=== PATIENT | female | born 1970 | race Caucasian/White ===

== ENCOUNTER 2024-08-12 21:05 | Emergency (ER) | payer MEDICAID, SELFPAY ==
[2024-08-12 21:16] VITALS: BP 166/94; PULSE 74; RESP 16; TEMP 36.6; O2SAT 97; BMI 34.3
--- NOTE | 2024-08-12 21:32 | CRLHL7_ITS ---
For Patients: As a result of the Century Cures Act, medical imaging exams and procedure reports are released immediately into your electronic medical record. You may view this report before your referring provider. If you have questions, please contact your health care provider. INDICATION: Pain. TECHNIQUE: Left knee 3 view. COMPARISON: None. FINDINGS: Bones: No acute fracture or suspicious bone lesion. Alignment is normal. Joints: There is moderate narrowing of the patellofemoral compartment with patellar spurring. Small joint effusion. Soft tissues: Probable superficial varicosities in the distal thigh and upper calf. IMPRESSION: 1. Small knee joint effusion. No other acute findings. 2. Degenerative changes of the patellofemoral compartment. Dictated by Kathe Joaquin MD @ 08/12/2024 10:26:56 PM (Electronically Signed)
--- NOTE | 2024-08-12 21:34 | ED.LOWEXIN ---
HPI - Extremity Injury (Lower) General Chief Complaint: Extremity Pain/Injury, Lower Stated Complaint: L knee pain Time Seen by Provider: 08/12/24 21:22 History of Present Illness HPI Narrative: This 53-year-old female comes in reporting pain in her left knee. She states that she had some discomfort over the past week or so that she thought would likely resolve but today she stepped backwards and had onset of pain in the posterior aspect of her left knee. She is able to ambulate. Related Data Home Medications ?Medication ?Instructions ?Recorded ?Confirmed No Known Home Medications 08/12/24 08/12/24 Allergies Allergy/AdvReac Type Severity Reaction Status Date / Time Penicillins Allergy Rash Verified 08/12/24 21:20 Review of Systems Status of ROS: Reports: 10 or more systems reviewed and unremarkable except as noted in History and below Narrative: Constitutional: No fevers, no weight gain or loss. Eyes: No discharge. No vision changes. HENT: No congestion, no sore throat, no ear pain. Cardiovascular: No chest pain, no palpitations. Respiratory: No shortness of breath, no wheezes, no cough. Gastrointestinal: No abdominal pain, no vomiting, no diarrhea. Genitourinary: No dysuria, no hematuria. Musculoskeletal: Normal range of motion. Skin: No rashes, no pruritis. Neurological: No dizziness, weakness, sensory change, speech change. Endo/Heme/Allergies: No bruising or bleeding. No polydipsia. Pysch: no suicidality, no anxiety, no insomnia. All other systems reviewed and are negative. PFSH PFSH Social History Non-prescribed substance use: denies use Exam Narrative: Exam Narrative: Constitutional: Well-developed, well-nourished, no acute distress. HEENT: Normocephalic, atraumatic. Neck: Normal range of motion. Nontender. Supple. Heart: Intact distal pulses. Lungs: No chest discomfort. No wheezes, rhonchi, or rales. Abdomen: Nontender. Back: Normal range of motion. Extremities: Normal range of motion. Diffuse pain in the posterior aspect of the left knee. No sign of joint effusion or ligament instability. Skin: Intact. No rash. Warm. No erythema or pallor. Neurologic: No altered sensation. No weakness. Alert and oriented. Psychiatric: No suicidality. No anxiety or depression. No insomnia. Nursing notes and vitals signs are reviewed. Const: Vital Signs, click to edit/add: Vital Signs - 24 hr 08/12/24 21:16 Temperature 97.8 F Pulse Rate [Pulse Oximeter] 74 Respiratory Rate 16 Blood Pressure [Ri ght Upper Arm] 166/94 H Pulse Oximetry 97 Oxygen Delivery Me thod Room Air Course Vital Signs Vital signs: Initial Vital Signs Temperature 97.8 F 08/12/24 21:16 Temperature Source Temporal Artery Scan 08/12/24 21:16 Pulse Rate 74 08/12/24 21:16 Respiratory Rate 16 08/12/24 21:16 Blood Pressure 166/94 H 08/12/24 21:16 Blood Pressure Mean 118 H 08/12/24 21:16 Blood Pressure Position Sitting 08/12/24 21:16 Pulse Oximetry 97 08/12/24 21:16 Oxygen Delivery Method Room Air 08/12/24 21:16 Vital Signs Temperature 97.8 F 08/12/24 21:16 Pulse Rate 74 08/12/24 21:16 Respiratory Rate 16 08/12/24 21:16 Blood Pressure 166/94 H 08/12/24 21:16 Pulse Oximetry 97 08/12/24 21:16 Oxygen Delivery Method Room Air 08/12/24 21:16 Temperature 97.8 F 08/12/24 21:16 Pulse Rate 74 08/12/24 21:16 Respiratory Rate 16 08/12/24 21:16 Blood Pressure 166/94 H 08/12/24 21:16 Pulse Oximetry 97 08/12/24 21:16 Oxygen Delivery Method Room Air 08/12/24 21:16 MDM - Extremity Injury (Lower) MDM Narrative Medical decision making narrative: This patient comes in with pain in her left knee as described above. She does not really have any significant mechanism of injury to generate her symptoms. X-ray shows no sign of fracture or malalignment but there is some degenerative changes and a small amount of an effusion. This patient is able to ambulate and states that she will use Tylenol and ibuprofen as needed and directed. I advised her to follow-up with orthopedic clinic for further evaluation and treatment. Imaging Data XR L Knee: Radiologist's impression: 1. Small knee joint effusion. No other acute findings. 2. Degenerative changes of the patellofemoral compartment. Discharge Plan Discharge Clinical Impression: Acute knee pain Patient Disposition: Home, Self-Care Condition: Stable Additional Instructions: Activity as tolerated. Use over the counter medicines as needed and directed. Follow-up with orthopedic clinic for further evaluation and treatment. Call [phone] for appointment. Prescriptions: No Action No Known Home Medications Follow Up/Referrals: Provider,Not a Local [Primary Care Provider] - Stand Alone Forms: [employer] Info Instructions
== END 2024-08-12 22:43 | disposition home or self-care (01) ==
PROVIDERS: Emergency Provider Emergency Medicine Emergency Medical Services
DX: M25.562 Pain in left knee (principal)
CPT/HCPCS: 73562; 99283; 99284

== ENCOUNTER 2024-08-21 12:58 | Outpatient (CLI) | payer MEDICAID, OTHER, SELFPAY ==
--- NOTE | 2024-08-21 13:00 | MR_ITS ---
[address] [address] Phone:?[phone] Fax:?[phone] Referring Physician Information: Amish Fletcher [address] [facility] [address] Phone:?[phone] Fax:?[phone] Patient:Matt Obrien D.O.B:?1970 Sex:?Female Phone:?[phone] [facility] MRN:?[id number] Exam Date:?08/21/2024 EXAM: MRI of the LEFT KNEE, without contrast CLINICAL INFORMATION: Female, 53 years old, with pain INDICATION: Evaluate for meniscus tear PRIOR SURGERY: None reported. PLAIN FILMS: Radiographs 08/12/2024. COMPARISONS: No prior MRIs available. TECHNICAL INFORMATION: Using a 1.5T MR scanner and a localizing surface coil: sagittals: PD, PDFS coronals: PD, T2FS axials: PD, PDFS SEDATION: None CONTRAST: None FINDINGS: Knee joint: Effusion: Large size left knee effusion. Popliteal cyst: Small popliteal cyst. Mild fluid along the medial of the gastrocnemius suggesting rupture and leaking Loose bodies: None. Subcutaneous and extra-articular soft tissues: Unremarkable. Ligaments: ACL: Intact ACL anteromedial and posterolateral bundles, without sprain or tear. PCL: Intact PCL, without acute or chronic injury. MCL: Intact MCL superficial and deep layers, without injury. LCL: Intact LCL, without injury. Posterolateral corner: No posterolateral corner soft tissue injury. Popliteus, biceps femoris, iliotibial band, popliteofibular ligament and lateral gastrocnemius are intact. Posteromedial corner: No posteromedial corner soft tissue injury. Semimembranosus, pes anserine tendons and posterior oblique ligament are without injury, tendinopathy or bursitis. Extensor mechanism: Patellar tendon: Intact, without tendinopathy. Quadriceps tendon: Intact, without tendinopathy. Retinacula: Medial and lateral retinacula are intact. Fat pads: Unremarkable infrapatellar Hoffa's, quadriceps and prefemoral fat pads. Medial compartment: Medial meniscus: There is full-thickness radial tearing of the posterior horn/root of the medial meniscus measuring 0.8 cm in length. The posterior root is intact. Tearing results in 4 mm peripheral meniscal extrusion. Medial femoral condyle: Region of full-thickness chondral defect along the weightbearing surface of the medial femoral condyle measuring 0.9 x 1.1 cm. No underlying marrow reactive edema. Medial tibial plateau: Diffuse grade 2 chondral thinning of the medial tibial plateau articular cartilage. Lateral compartment: Lateral meniscus: Horizontal superior articular surface tearing along the anterior horn of the lateral meniscus. Lateral femoral condyle and tibial plateau: Mild chondral heterogeneity along the far posterior nonweightbearing lateral femoral condyle and tibial plateau. Patellofemoral joint: Patella: Broad-based full-thickness chondral loss of the medial patellar facet, extending to involve the superior aspect of the lateral patellar facet, where there is moderate underlying cystic change and osteophytosis. 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 Proximal tibiofibular joint: Proximal tibiofibular joint DJD. Bones: No stress/occult fractures or other marrow edema/pathology. IMPRESSION: 1. Full-thickness radial tearing of the posterior horn/root of the medial meniscus measuring 0.8 cm in length. 4 mm peripheral meniscal extrusion. 2. Region of full-thickness chondral defect along the central weightbearing medial femoral condyle measuring 0.9 x 1.1 cm. 3. Broad-based full-thickness chondral loss of the medial patellar facet and superior lateral patellar facet. 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 4. Mild lateral compartment chondromalacia. 5. Horizontal superior articular surface tearing along the anterior horn of the lateral meniscus. 6. Small popliteal cyst with suggested rupture and mild leaking fluid. Moderate size knee joint effusion 7. No cruciate or collateral ligament sprain/tear. KME Electronically signed on 08/22/2024 9:52:00 AM by Mehnaz Alcantara M.D.
== END 2024-08-21 12:59 | disposition home or self-care (01) ==
LOC: MRI 12:58
PROVIDERS: Visit Provider Physician Assistant
DX: M25.562 Pain in left knee (principal); S83.222A Peripheral tear of medial meniscus, current injury, left knee, initial encounter; M22.42 Chondromalacia patellae, left knee; S83.282A Other tear of lateral meniscus, current injury, left knee, initial encounter; M71.22 Synovial cyst of popliteal space [Baker], left knee; M25.462 Effusion, left knee
CPT/HCPCS: 73721

== ENCOUNTER 2024-09-16 09:09 | Outpatient (CLI) | payer MEDICAID, SELFPAY | END 2024-09-16 09:10 | disposition home or self-care (01) | PROVIDERS: Visit Provider Family Medicine | DX: Z01.818 Encounter for other preprocedural examination (principal) | CPT/HCPCS: 80053; 80061 ==

== ENCOUNTER 2024-10-08 08:28 | Day surgery (SDC) | payer MEDICAID, SELFPAY ==
[2024-10-08] VITALS (18 sets, daily range): BP systolic 102–171; BP diastolic 72–101; PULSE 54–80; RESP 12–16; TEMP 36.1–36.9; O2SAT 96–100; BMI 41.8
[2024-10-08] MEDS: SODIUM CHLORIDE 0.9 % (FLUSH) 10 ML SYRINGE IVF (08:46)
[2024-10-08] MEDS: LACTATED RINGERS 1000 ML 1,000 ML 100 ML IV (08:46)
--- NOTE | 2024-10-08 10:55 | P.ANES_ITS ---
Anesthesia Charges Start Date/Time Anesthesia Start Date: 10/08/24 Anesthesia Start Time: 10:32 Stop Date/Time Anesthesia Stop Date: 10/08/24 Anesthesia Stop Time: 12:39 Coding CPT Codes CPT Codes: ANESTH KNEE JOINT SURGERY - 04124 ([id number]) P3 - PATIENT W/SEVERE SYS DISEASE, QK - EMT I/85 2-4 CNCRNT ANES PROC, QX - RIB KNITTER SVC W/ MD MED DIRECTION
--- NOTE | 2024-10-08 10:55 | W.ANESCHARGE ---
Anesthesia Charges Start Date/Time Anesthesia Start Date: 10/08/24 Anesthesia Start Time: 10:32 Stop Date/Time Anesthesia Stop Date: 10/08/24 Anesthesia Stop Time: 12:39 Coding CPT Codes CPT Codes: ANESTH KNEE JOINT SURGERY - 08622 ([id number]) P3 - PATIENT W/SEVERE SYS DISEASE, QK - UTILITY WORKER DRIVER 2-4 CNCRNT ANES PROC, QX - PHOTOGRAVURE PRESS OPERATOR SVC W/ MD MED DIRECTION
--- NOTE | 2024-10-08 12:25 | P.ORPRC_ITS ---
Procedure Note Date of procedure: 10/08/24 Procedure: PREOPERATIVE DIAGNOSIS: Left knee medial meniscus root tear, lateral meniscus tear POSTOPERATIVE DIAGNOSIS: Left knee medial meniscus root tear, lateral meniscus tear NAME OF OPERATION: Left knee arthroscopic medial meniscus root repair, microfracture of the notch, partial lateral meniscectomy SURGEON: Feliz Sosa MD SENIOR INFORMATICA ETL DEVELOPER: GRAHAM James ANESTHESIA: Spinal ESTIMATED BLOOD LOSS: 0 mL COMPLICATIONS: None SPECIMENS: None DRAINS: None PREOPERATIVE ANTIBIOTICS: Ancef 2 gram INDICATIONS: The patient is a 53-year-old female with a history of left knee medial pain. MRI scan is consistent with a medial meniscus root tear, lateral meniscus tear. Despite appropriate nonoperative management, including activity modification, antiinflammatories, [id number] pain medication, bracing, physical therapy, and injections they continue to have pain and disability. Operative intervention was offered. The risks, benefits and expected outcomes were discussed in detail. These included but were not limited to: Infection, bleeding, injury to blood vessel or nerve, venous thromboembolism. All questions were answered to their satisfaction. PROCEDURE: Spinal anesthesia was administered. The patient was placed supine on the operating room table. The left lower extremity was prepped and draped in the usual sterile fashion. The limb was exsanguinated with the Alex bandage. The pneumatic tourniquet was inflated to 250 mmHg. A standard anterolateral portal was established. The arthroscope was introduced. The working portal was established anteromedially. Diagnostic arthroscopy was performed with findings as follows: The suprapatellar pouch is normal. Articular surface on the patella diffuse grade 2/3 change. Articular surface on the trochlea diffuse grade 3 change. The medial gutter is normal. The medial compartment shows a small, focal area of grade 3 change on the medial femoral condyle, grade 1 change on the medial tibial plateau. The medial meniscus has a radial tear of the posterior horn from the leading edge to the capsule (root tear). The notch shows the ACL to be intact. The lateral compartment shows normal articular cartilage on the lateral femoral condyle and lateral tibial plateau. The lateral meniscus has degenerative fraying of the posterior horn, just off the posterior tibial attachment. This does not result in detachment from the tibia (root tear). The lateral gutter is normal. The stump of the posterior horn of the medial meniscus was debrided with the shaver.. Unstable chondral flaps on the medial femoral condyle were debrided with the shaver through both portals, taken to a stable base. The drill guide was placed just medial to the posterior stump attachment. A percutaneous incision was placed over the anteromedial the tibia. The guide pin is drilled into the knee joint and was directly visualized, and an excellent place for the footprint. The Nitinol wire was shuttled out anteromedial portal. We then used a wire to shuttle the Arthrex Sutureloc implant into the knee. It was brought out anteromedial face of the tibia. It was then pulled in to the tibia to the level of the cortex, just under the articular cartilage. The distal suture was tension to mushroom the implant. Fixation was excellent. We then placed 2 simple sutures in the posterior horn of the medial meniscus and shuttled them out the implant distally. They were then tensioned. The knee was cycled. The sutures were tensioned again. The probe was used to assess the repair which was excellent. The power pick was used to microfracture the notch both medially and laterally. Arthroscopic instruments were removed, the portal sites were Steri-Stripped closed, the incision over the tibia was closed with 3-0 Vicryl and 4-0 Monocryl. A dry dressing was applied, the tourniquet was released. Sponge and needle counts were correct x 2. The patient tolerated the procedure well. There were no apparent complications. They were carefully transferred to the hospital bed and taken to the postanesthesia care unit in satisfactory condition. PLAN: The patient will be discharged to home. They will be protected weightbearing on the lower extremity for 6 weeks postoperatively. Range of motion will be allowed from 0-90 degrees x 2 weeks then unrestricted range of motion. They will follow up in 2 weeks for a wound check.
--- NOTE | 2024-10-08 12:40 | W.PM.NB ---
Nerve Block Nerve Block Time Seen by Provider: 12:30 Date Seen: 10/08/24 Type of block requested by surgeon for post-operative analgesia: geniculars Side: left Time out performed: Yes Verification of patient name: Yes Verification of date of : Yes Site marking: site marked Name of person performing procedure: Allan York Continuous monitoring Was continuous monitoring of O2 sat, B/P, quality assurance monitor body, recorded every 15 minutes?: Yes Procedure Checklist: sterile prep, needles and gloves Ultrasound guided. Images saved: No Medications given in 5ml increments after negative aspiration: Ropivicaine %: 0.5 mL: 12 Needle gauge: 25 Patient tolerated procedure well: Yes Additional comments: Injected in 4ml increments after negative aspiration Block Charges Block Charge (with Pro Fee): Genicular Nerve Block Use of Ultrasound Machine for Block: No
--- NOTE | 2024-10-08 13:47 | P.ANES_ITS ---
Anesthesia Charges Start Date/Time Anesthesia Start Date: 10/08/24 Anesthesia Start Time: 10:32 Stop Date/Time Anesthesia Stop Date: 10/08/24 Anesthesia Stop Time: 12:39 Coding CPT Codes CPT Codes: ANESTH KNEE JOINT SURGERY - 11002 ([id number]) QK - BRAIDING MACHINE OPERATOR 2-4 CNCRNT ANES PROC, QX - MOUNTING MACHINE OPERATOR SVC W/ MD MED DIRECTION, P3 - PATIENT W/SEVERE SYS DISEASE
--- NOTE | 2024-10-08 13:47 | W.ANESCHARGE ---
Anesthesia Charges Start Date/Time Anesthesia Start Date: 10/08/24 Anesthesia Start Time: 10:32 Stop Date/Time Anesthesia Stop Date: 10/08/24 Anesthesia Stop Time: 12:39 Coding CPT Codes CPT Codes: ANESTH KNEE JOINT SURGERY - 88281 ([id number]) QK - FISCAL ACCOUNTANT 2-4 CNCRNT ANES PROC, QX - OFFICE SERVICES ASSOCIATE SVC W/ MD MED DIRECTION, P3 - PATIENT W/SEVERE SYS DISEASE
[2024-10-08] MEDS: LACTATED RINGERS 500 ML 500 ML IV (15:00)
[2024-10-08] MEDS: PROCHLORPERAZINE 5 MG/ML VIAL IVP (15:30)
== END 2024-10-08 16:26 | disposition home or self-care (01) ==
LOC: OR 08:30
PROVIDERS: Visit Provider Orthopaedic Surgery
PROC: (CPT 29882; principal; 2024-10-08 10:00)
DX: S83.242A Other tear of medial meniscus, current injury, left knee, initial encounter (principal); S83.282A Other tear of lateral meniscus, current injury, left knee, initial encounter; G89.18 Other acute postprocedural pain
CPT/HCPCS: 29880; 29882; 29879; 01400; 64454; 97161; A9270; C1713; J0690; J0780; J1100; J1171; J2405; J2704; J2795; J3010; J3490; J7120